=== PATIENT | male | born 1940 | race Caucasian/White ===

== ENCOUNTER 2021-10-29 15:59 | Outpatient (CLI) | payer MEDICARE ==
[2021-10-29 16:46] LABS: Hemoglobin 13.4 g/dL (13.5-17.5); MDiff Complete? YES; Mean Corpuscular HGB CONC 33.3 g/dL (32.0-36.0); Mean Corpuscular Hemoglobin 28.6 pg (27.0-33.0); Mean Corpuscular Volume 85.9 fl (81.2-95.1); Mean Platelet Volume 10.7 fl (7.4-10.4); Platelet Count 209 10x3/uL (150-450); RBC Distribution Width 14.5 % (11.5-14.5); Red Blood Cell (RBC) Count 4.69 10x6/uL (4.32-5.72); White Blood Cell (WBC) Count 7.3 10x3/uL (3.5-10.5)
[2021-10-29 17:07] LABS: INR-International Normal Ratio 0.9; PTT 28.2 sec (22.0-33.0); Prothrombin Time 10.1 sec (9.5-12.1)
[2021-10-29 17:08] LABS: Anion Gap 13 mmol/L (10-20); BUN (Urea Nitrogen) 21 mg/dL (8.4-25.7); Calc. Creatinine Clearance 0 mL/min (70-130); Calcium 9.3 mg/dL (7.8-10.44); Carbon Dioxide 24 mmol/L (23-31); Chloride 105 mmol/L (98-107); Glucose 86 mg/dL (83-110); Potassium 4.3 mmol/L (3.5-5.1); Sodium 138 mmol/L (136-145)
[2021-10-29 17:16] LABS: Band 2 % (5-11); Eosinophils 1 % (0-10); Lymphocytes 58 % (21-51); Monocytes 4 % (0-10); Neutrophil 30 % (42-75); Platelet Morphology Comment Appears Adequate; Reactive Lymphocytes 5 % (0-10)
== END 2021-10-29 16:00 | disposition home or self-care (01) ==
LOC: LABBT 15:59
PROVIDERS: ATTEND Internal Medicine Cardiovascular Disease
DX: Z01.812 Encounter for preprocedural laboratory examination (principal); N35.914 Unspecified anterior urethral stricture, male; Z20.822 Contact with and (suspected) exposure to COVID-19
CPT/HCPCS: 80048; 85025; 85610; 85730; U0003; U0005

== ENCOUNTER 2021-11-02 05:51 | Day surgery (SDC) | payer MEDICARE, OTHER ==
[2021-10-29 13:20] VITALS: BMI 26.5
[2021-11-02] MEDS ORDERED: PROPOFOL 200 MG/20 ML VIAL ONE (08:29)
== END 2021-11-02 10:00 | disposition home or self-care (01) ==
LOC: SDC 05:51
PROVIDERS: ATTEND Internal Medicine Cardiovascular Disease
PROC: B246ZZ4 Ultrasonography of Right and Left Heart, Transesophageal (ICD-10-PCS; principal; 2021-11-02)
PROC: 5A2204Z Restoration of Cardiac Rhythm, Single (ICD-10-PCS; 2021-11-02)
DX: I48.91 Unspecified atrial fibrillation (principal); I08.3 Combined rheumatic disorders of mitral, aortic and tricuspid valves; Z86.16 Personal history of COVID-19; Z87.891 Personal history of nicotine dependence; Z79.01 Long term (current) use of anticoagulants; Z79.899 Other long term (current) drug therapy
CPT/HCPCS: 92960; 93005; 93010; 93312; J2704

== ENCOUNTER 2023-01-27 09:59 | Outpatient (CLI) | payer MEDICARE | END 2023-01-27 10:00 | disposition home or self-care (01) | LOC: RAD 09:59 | PROVIDERS: ATTEND Family Medicine | DX: M54.50 Low back pain, unspecified (principal) | CPT/HCPCS: 72100 ==

== ENCOUNTER 2023-08-02 10:40 | Emergency (ER) | payer OTHER ==
[2023-08-02] MEDS ORDERED: Metoprolol Tartrate 5 MG (5 mL) VIAL ONE ×2 (10:58→13:09)
[2023-08-02 11:32] LABS: Hemoglobin 12.9 g/dL (14.0-18.0); Manual Diff?? YES; Mean Corpuscular HGB CONC 33.1 g/dL (32.0-36.0); Mean Corpuscular Hemoglobin 28.7 pg (27.0-31.0); Mean Corpuscular Volume 86.7 fl (78.0-98.0); Mean Platelet Volume 11.7 fL (7.4-10.4); Platelet Count 204 10x3/uL (130-400); RBC Distribution Width 14.4 % (11.5-14.5); White Blood Cell (WBC) Count 10.9 10x3/uL (4.8-10.8)
[2023-08-02 11:36] LABS: Delete Auto Diff?? YES
[2023-08-02 11:59] LABS: ALT (SGPT) 11 U/L (8-55); AST (SGOT) 13 U/L (5-34); Albumin 4.2 g/dL (3.4-4.8); Alkaline Phosphatase 58 U/L (40-110); Anion Gap 11 mmol/L (10-20); BUN (Urea Nitrogen) 18 mg/dL (8.4-25.7); Bilirubin, Total 0.6 mg/dL (0.2-1.2); Calc. Creatinine Clearance 0 mL/min (70-130); Calcium 9.5 mg/dL (7.8-10.44); Carbon Dioxide 24 mmol/L (23-31); Chloride 107 mmol/L (98-107); Estimated GFR 64; Glucose 95 mg/dL (83-110); Magnesium 2.1 mg/dL (1.6-2.6); Potassium 4.4 mmol/L (3.5-5.1); Protein, Total 7.2 g/dL (5.8-8.1); Sodium 138 mmol/L (136-145)
[2023-08-02 12:01] LABS: Band 1 % (5-11); CellaVision Operator ID LAB.KW3; Eosinophils 1 % (0-10); Large Platelets 4.2 % (0-5); Lymphocytes 78 % (21-51); Monocytes 3 % (0-10); Neutrophil 16 % (42-75); Platelet Adequacy Comment Platelets Normal; RBC Morphology Within Normal Limits; Reactive Lymphocytes 1 % (0-10); Total Cell Count 96
[2023-08-02 12:02] LABS: Troponin I 0.017 ng/mL (< 0.028)
[2023-08-02] MEDS ORDERED: Midazolam HCl 2 mg/2 ml Vial ONE (13:13)
[2023-08-02] MEDS ORDERED: fentaNYL 50 mcg/mL 1 mL Vial ONE (13:29)
== END 2023-08-02 15:50 | disposition home or self-care (01) ==
LOC: ERS 10:40
DX: I48.92 Unspecified atrial flutter (principal); I48.91 Unspecified atrial fibrillation; I10 Essential (primary) hypertension; Z79.01 Long term (current) use of anticoagulants; Z79.899 Other long term (current) drug therapy
CPT/HCPCS: 36416; 71045; 80053; 83735; 83880; 84443; 84484; 85025; 92960; 93005; J2250; J3010

== ENCOUNTER 2024-03-18 15:01 | Inpatient (IN) | payer MEDICARE, OTHER ==
[~2024-03-18 15:01] MED LIST: Iopamidol-370 76% 500 ML MDV (1 ML CHARGE) ONE
[2024-03-18] MEDS ORDERED: Ondansetron PF 4 MG/2 ML Vial ONE (15:18)
[2024-03-18 15:28] LABS: Hemoglobin 12.2 g/dL (14.0-18.0); Mean Corpuscular Hemoglobin 28.8 pg (27.0-31.0); Mean Corpuscular Volume 87.3 fL (78.0-98.0); Mean Platelet Volume 11.1 fL (7.4-10.4); Platelet Count 192 10x3/uL (130-400); RBC Distribution Width 15.5 % (11.5-14.5); Red Blood Cell (RBC) Count 4.24 mill/uL (4.70-6.10)
[2024-03-18 15:36] LABS: INR-International Normal Ratio 1.1; Prothrombin Time 14.1 sec (12.0-14.7)
[2024-03-18 15:37] LABS: PTT 32.8 sec (22.9-36.1)
[2024-03-18 15:44] LABS: ALT (SGPT) 10 U/L (8-55); AST (SGOT) 14 U/L (5-34); Albumin 4.2 g/dL (3.4-4.8); Alkaline Phosphatase 54 U/L (40-110); Anion Gap 14 mmol/L (10-20); BUN (Urea Nitrogen) 22 mg/dL (8.4-25.7); Bilirubin, Total 0.7 mg/dL (0.2-1.2); Calc. Creatinine Clearance 0 mL/min (70-130); Calcium 9.1 mg/dL (7.8-10.44); Carbon Dioxide 20 mmol/L (23-31); Chloride 108 mmol/L (98-107); Estimated GFR 83; Globulin 3.2 g/dL (2.4-3.5); Glucose 155 mg/dL (83-110); Potassium 4.5 mmol/L (3.5-5.1); Protein, Total 7.4 g/dL (5.8-8.1); Sodium 137 mmol/L (136-145)
[2024-03-18 15:49] LABS: Lipase 11 U/L (8-78)
[2024-03-18] MEDS ORDERED: Diazepam 10 MG/2 ML SYRINGE ONE (15:53)
[2024-03-18] MEDS ORDERED: Magnesium 2 GM/50 ML BAG (IN WATER) ONE (15:53)
[2024-03-18 16:08] LABS: Troponin I Less than 0.010 ng/mL (< 0.028)
[2024-03-18 16:20] LABS: Band 4 % (5-11); Lymphocytes 32 % (21-51); Monocytes 1 % (0-10); Neutrophil 54 % (42-75); Ovalocytes SLIGHT = 2-5 cells HPF (0-1); Platelet Adequacy Comment Platelets Normal; Reactive Lymphocytes 9 % (0-10); Target Cells SLIGHT = 2-5 cells HPF (0-1)
[2024-03-18 16:28] LABS: Actual Bicarbonate (HCO3v) 21.5 mEq/L (22-28); Base Excess -3.3 mEq/L (-2.0 to +3.0); Calcium, Ionized (venous) 1.13 mmol/L (1.16-1.32); Chloride (VBG) 104 mmol/L (98-106); Hematocrit-VBG 35 % (42.0-52.0); Hemoglobin (Hb) 11.8 g/dL (12.6-17.4); Sodium 137 mmol/L (133-146); pH (venous) 7.374 (7.32-7.43)
[2024-03-18] MEDS ORDERED: Labetalol HCl 100 MG/20 ML VIAL SLOW IVP PRN (21:26)
[2024-03-18 23:20] VITALS: BMI 30.7
[2024-03-18] MEDS: Metoprolol Tartrate 50 MG TAB PO SCH (23:26)
[2024-03-19 06:10] LABS: Cardiac Risk 3.2 (Less than 4.5)
[2024-03-19] MEDS: Apixaban 5 MG TAB PO SCH (08:13)
[2024-03-19] MEDS: Metoprolol Tartrate 50 MG TAB PO SCH (08:13)
[2024-03-19] MEDS: Aspirin 81 mg Enteric Coated Tablet PO SCH (08:13)
[2024-03-19] MEDS: Atorvastatin Calcium 40 MG TAB PO SCH (20:37)
[2024-03-19] MEDS: Amiodarone 200 MG TAB PO SCH (20:37)
[2024-03-21 06:04] LABS: Hematocrit 32.7 % (42.0-52.0); Hemoglobin 10.8 g/dL (14.0-18.0); Mean Corpuscular Hemoglobin 29.1 pg (27.0-31.0); Mean Corpuscular Volume 88.1 fL (78.0-98.0); Mean Platelet Volume 11.3 fL (7.4-10.4); Platelet Count 184 10x3/uL (130-400); RBC Distribution Width 15.7 % (11.5-14.5); Red Blood Cell (RBC) Count 3.71 mill/uL (4.70-6.10)
[2024-03-21 06:12] LABS: ALT (SGPT) 9 U/L (8-55); AST (SGOT) 11 U/L (5-34); Albumin 3.5 g/dL (3.4-4.8); Alkaline Phosphatase 51 U/L (40-110); Anion Gap 13 mmol/L (10-20); BUN (Urea Nitrogen) 18 mg/dL (8.4-25.7); Bilirubin, Total 0.4 mg/dL (0.2-1.2); Calc. Creatinine Clearance 76 mL/min (70-130); Calcium 8.6 mg/dL (7.8-10.44); Carbon Dioxide 24 mmol/L (23-31); Chloride 107 mmol/L (98-107); Estimated GFR 85; Globulin 2.6 g/dL (2.4-3.5); Glucose 99 mg/dL (83-110); Protein, Total 6.1 g/dL (5.8-8.1); Sodium 140 mmol/L (136-145)
[2024-03-21 07:34] LABS: Band 1 % (5-11); Eosinophils 2 % (0-10); Lymphocytes 53 % (21-51); Monocytes 1 % (0-10); Neutrophil 41 % (42-75); Platelet Adequacy Comment Platelets Normal; RBC Morphology Within Normal Limits; Reactive Lymphocytes 2 % (0-10)
[2024-03-21] MEDS ORDERED: Lidocaine 1% PF 5 ML VIAL ONE (08:21)
[2024-03-21] MEDS ORDERED: PROPOFOL 200 MG/20 ML VIAL ONE (08:21)
[2024-03-21 11:46] VITALS: TEMP 97.9
[2024-03-21 15:16] VITALS: BP 120/61
[2024-03-21] MEDS ORDERED: Amiodarone 200 MG TAB PO SCH (21:00)
== END 2024-03-21 16:40 | disposition home or self-care (01) | DRG 309 ==
LOC: ERS 15:01 → OBS 20:31 → OBSVTOIN 03-19 16:43
PROVIDERS: ADMIT Student in an Organized Health Care Education/Training Program; ATTEND Student in an Organized Health Care Education/Training Program
PROC: 5A2204Z Restoration of Cardiac Rhythm, Single (ICD-10-PCS; principal; 2024-03-21)
DX: I47.10 Supraventricular tachycardia, unspecified (principal); C91.10 Chronic lymphocytic leukemia of B-cell type not having achieved remission; H81.10 Benign paroxysmal vertigo, unspecified ear; I48.20 Chronic atrial fibrillation, unspecified; I48.92 Unspecified atrial flutter; I10 Essential (primary) hypertension; I49.5 Sick sinus syndrome; Z90.49 Acquired absence of other specified parts of digestive tract; Z79.01 Long term (current) use of anticoagulants; Z95.0 Presence of cardiac pacemaker; I44.0 Atrioventricular block, first degree
CPT/HCPCS: 0042T; 36415; 70450; 70496; 70498; 70551; 71045; 80053; 80061; 82805; 83605; 83690; 83735; 83880; 84484; 85025; 85610; 85730; 92960; 93005; 93306; 96374; 96375; G0378; J2405; J2704; J3360; J3475; Q9967

== ENCOUNTER 2024-05-28 12:23 | Outpatient (CLI) | payer OTHER | END 2024-05-28 12:24 | disposition home or self-care (01) | LOC: LABBT 12:23 | PROVIDERS: ATTEND Internal Medicine Cardiovascular Disease | DX: Z01.818 Encounter for other preprocedural examination (principal); I48.0 Paroxysmal atrial fibrillation | CPT/HCPCS: 93005; 93010 ==

== ENCOUNTER 2024-07-11 05:54 | Day surgery (SDC) | payer OTHER ==
[2024-07-09 13:15] VITALS: BMI 26.5
[2024-07-09 14:24] LABS: ALT (SGPT) 13 U/L (Less than 45); AST (SGOT) 17 U/L (11-34); Alkaline Phosphatase 61 U/L (40-110); Anion Gap 10 mmol/L (10-20); BUN (Urea Nitrogen) 19 mg/dL (8.4-25.7); Bilirubin, Total 0.2 mg/dL (0.3-1.2); Calc. Creatinine Clearance 0 mL/min (70-130); Calcium 8.9 mg/dL (7.8-10.44); Carbon Dioxide 25 mmol/L (23-31); Chloride 106 mmol/L (98-107); Estimated GFR 53; Globulin 3.1 g/dL (2.4-3.5); Glucose 86 mg/dL (83-110); Potassium 4.2 mmol/L (3.5-5.1); Protein, Total 7.1 g/dL (5.8-8.1); Sodium 137 mmol/L (136-145)
[2024-07-09 14:43] LABS: INR-International Normal Ratio 1.1; Prothrombin Time 13.8 sec (12.0-14.7)
[2024-07-09 14:44] LABS: PTT 33.7 sec (22.9-36.1)
[2024-07-09 15:48] LABS: Hemoglobin 11.6 g/dL (14.0-18.0); Lymphocytes 80 % (21-51); Macrocytosis SLIGHT = 6-15 cells HPF (0-5); Mean Corpuscular HGB CONC 32.2 g/dL (32.0-36.0); Mean Corpuscular Hemoglobin 28.6 pg (27.0-31.0); Mean Corpuscular Volume 88.9 fL (78.0-98.0); Mean Platelet Volume 10.7 fL (7.4-10.4); Neutrophil 20 % (42-75); Platelet Adequacy Comment Platelets Normal; Platelet Count 184 10x3/uL (130-400); Polychromasia SLIGHT = 2-3 cells HPF (0-2); RBC Distribution Width 15.2 % (11.5-14.5); Red Blood Cell (RBC) Count 4.05 mill/uL (4.70-6.10)
[2024-07-11] MEDS ORDERED: Protamine Sulfate 50 MG/5 ML VIAL ONE ×2 (07:08→10:57)
[2024-07-11] MEDS ORDERED: Heparin 10,000 UNITS/ 10 ML VIAL ONE (07:08)
[2024-07-11] MEDS ORDERED: Isoproterenol 0.2 MG/1 ML AMP ONE (07:54)
[2024-07-11] MEDS ORDERED: fentaNYL 50 mcg/mL 1 mL Vial ONE (08:31)
[2024-07-11] MEDS ORDERED: Rocuronium Bromide 10 MG/ML (10ML VIAL) ONE (08:38)
[2024-07-11] MEDS ORDERED: PROPOFOL 200 MG/20 ML VIAL ONE (08:38)
[2024-07-11] MEDS ORDERED: Dexamethasone 20 MG/5 ML VIAL ONE (08:38)
[2024-07-11] MEDS ORDERED: Lidocaine 1% PF 5 ML VIAL ONE (08:38)
[2024-07-11] MEDS ORDERED: Ondansetron PF 4 MG/2 ML Vial ONE (08:38)
[2024-07-11] MEDS ORDERED: Heparin 25,000 units/D5W 500 ML ONE (08:50)
[2024-07-11] MEDS ORDERED: Nitroglycerin 50 MG/250 ML BOT 250 ML ONE (09:44)
[2024-07-11] MEDS ORDERED: Phenylephrine 10 MG/ML VIAL ONE (10:21)
[2024-07-11] MEDS ORDERED: SUGAMMADEX SODIUM 200 MG/2 ML VIAL ONE (11:10)
== END 2024-07-11 16:15 | disposition home or self-care (01) ==
LOC: SDC 05:54
PROVIDERS: ATTEND Internal Medicine Cardiovascular Disease
PROC: 4A023FZ Measurement of Cardiac Rhythm, Percutaneous Approach (ICD-10-PCS; principal; 2024-07-11)
PROC: 02583ZZ Destruction of Conduction Mechanism, Percutaneous Approach (ICD-10-PCS; principal; 2024-07-11)
DX: I48.0 Paroxysmal atrial fibrillation (principal); I48.3 Typical atrial flutter; I49.8 Other specified cardiac arrhythmias; I44.0 Atrioventricular block, first degree; I34.0 Nonrheumatic mitral (valve) insufficiency; I07.1 Rheumatic tricuspid insufficiency; I49.5 Sick sinus syndrome; I10 Essential (primary) hypertension; Z95.0 Presence of cardiac pacemaker; Z87.891 Personal history of nicotine dependence; Z85.6 Personal history of leukemia; Z98.41 Cataract extraction status, right eye; Z98.42 Cataract extraction status, left eye; Z79.01 Long term (current) use of anticoagulants; Z79.899 Other long term (current) drug therapy
CPT/HCPCS: 80053; 85025; 85610; 85730; 86850; 86900; 86901; 93005; 93010; 93622; 93623; 93656; 93657; C1730; C1732; C1733; C1759; C1760; C1766; C1769; C1894; J1100; J1644; J2371; J2405; J2704; J2720; J3010